=== PATIENT | female | born 1995 | race Caucasian/White ===

== ENCOUNTER 2022-07-19 11:58 | Emergency (ER) | payer OTHER ==
[2022-07-19 12:13] VITALS: BP 126/77
[2022-07-19] MEDS ORDERED: DEXAMETHASONE 10 MG/ML VIAL PO STA (12:44)
[2022-07-19] MEDS ORDERED: PSEUDOEPHEDRINE 30 MG TABLET PO STA (12:44)
[2022-07-19] MEDS ORDERED: CHERRY SYRUP 10 ML UDC PO ONE (12:44)
--- NOTE | 2022-07-19 12:50 | ED Physician Documentation ---
History of Present Illness - Stated complaint Stated Complaint: LEFT EAR PX - Chief complaint Chief Complaint: Heent - History obtained from History obtained from: Patient - History of Present Illness Timing: Today Pain level max: 5 Pain level now: 4 - Additonal information Additional information: L ear pain started 2 hours ago. No fevers. No chills. Patient has had a mild URI for the past several days. Denies any possibility of . Not breast-feeding. Nothing seems to make the pain better or worse. Has not taken anything for the pain. Review of Systems Constitutional: denies: Fever, Chills Nose: reports: Rhinorrhea / runny nose, Congestion Respiratory: reports: Cough (mild, dry) GI: denies: Nausea, Vomiting, Diarrhea Skin: denies: Rash PD PAST MEDICAL HISTORY - Past Medical History Past Medical History: No - Past Surgical History Past Surgical History: No - Present Medications Home Medications: Ambulatory Orders Medication Instructions Recorded Confirmed Cetirizine HCl/Pseudoephedrine 1 each PO BID PRN #30 tab 07/19/22 [Zyrtec-D Tablet] predniSONE [Deltasone] 40 mg PO DAILY #10 tablet 07/19/22 - Allergies Allergies/Adverse Reactions: Allergies Allergy/AdvReac Type Severity Reaction Status Date / Time No Known Drug Allergies Allergy Verified 07/19/22 12:13 - Social History Does the pt smoke?: No Smoking Status: Never smoker Does the pt drink ETOH?: No Does the pt have substance abuse?: No - Immunizations Immunizations are current?: Yes PD ED PE NORMAL - Vitals Vital signs reviewed: Yes - General General: Alert and oriented X 3, No acute distress - HEENT HEENT: Moist mucous membranes, Other (Right TM is normal. Left TM is retracted, but no purulence) - Neck Neck: Supple, no meningeal sign - Cardiac Cardiac: RRR - Respiratory Respiratory: No respiratory distress, Clear bilaterally - Derm Derm: Warm and dry - Neuro Neuro: Alert and oriented X 3 Results - Vitals Vitals: Vital Signs - 24 hr 07/19/22 12:11 Temperature 36.8 C Heart Rate 75 Respiratory 18 Rate Blood Pressure 126/77 O2 Saturation 99 Oxygen O2 Source Room air PD MEDICAL DECISION MAKING - ED course Complexity details: considered differential, d/w patient ED course: 26-year-old female with a retracted left TM, likely causing her pain and decreased hearing. Will place on decongestants and steroids. We will have her follow-up with her doctor for further care. No indication for antibiotics. Patient counseled regarding signs and symptoms for which I believe and urgent re-evaluation would be necessary. Patient with good understanding of and agreement to plan and is comfortable going home at this time This document was made in part using voice recognition software. While efforts are made to proofread this document, sound alike and grammatical errors may occur. Departure - Departure Disposition: 01 Home, Self Care Clinical Impression: Tympanic membrane retraction Qualifiers: Laterality: left Qualified Code(s): H73.892 - Other specified disorders of tympanic membrane, left ear Condition: Good Instructions: ED Obstruction Eustachian Tube Ch Follow-Up: TIANNA BELLE MD [Primary Care Provider] - Prescriptions: predniSONE [Deltasone] 40 mg PO DAILY #10 tablet Cetirizine HCl/Pseudoephedrine [Zyrtec-D Tablet] 1 each PO BID PRN #30 tab PRN Reason: nasal congestion Comments: Your prescriptions were sent to [facility] in [place]. Please follow up with your doctor for further care. Take the medications as prescribed Discharge Date/Time: 07/19/22 13:18
== END 2022-07-19 13:18 | disposition home or self-care (01) ==
LOC: ED 11:58
DX: H73.892 Other specified disorders of tympanic membrane, left ear (principal)
CPT/HCPCS: 99282; A9270

== ENCOUNTER 2022-07-23 12:23 | Outpatient (CLI) | payer OTHER ==
--- NOTE | 2022-07-23 16:19 | MRI Report ---
PROCEDURE: THORACIC SPINE WO INDICATIONS: THORACIC PAIN TECHNIQUE: Noncontrast sagittal T1 spine echo and T2 fast spin echo, sagittal STIR, axial T1 and T2 fast spin ec ho through the thoracic spine. COMPARISON: None. FINDINGS: Image quality: Excellent. Alignment and Curvature: There is normal bony alignment. Bone Marrow: Marrow is of normal overall signal. No acute vertebral body compression fractures. Spinal Cord: Visualized spinal cord is normal in size and signal. Paraspinous Soft Tissues: No paravertebral masses. Miscellaneous: On axial images, central canal and foramina appear widely patent at all scanned level s. IMPRESSION: 1. No compression fracture or spondylolisthesis is seen in thoracic spine. 2. No significant disc bulge, canal stenosis or neural foraminal narrowing. 3. No signal abnormality is seen within thoracic spinal cord. Reviewed by: Delfino Levi MD on 07/23/2022 4:18 PM PDT Approved by: Delfino Levi MD on 07/23/2022 4:18 PM PDT Station ID: [id number]
== END 2022-07-23 12:24 | disposition home or self-care (01) ==
LOC: DI 12:23
PROVIDERS: ATTEND Student in an Organized Health Care Education/Training Program
DX: M54.6 Pain in thoracic spine (principal); R07.9 Chest pain, unspecified

== ENCOUNTER 2023-07-21 12:36 | Outpatient (CLI) | payer OTHER ==
--- NOTE | 2023-07-22 08:55 | MRI Report ---
PROCEDURE: FEMUR/THIGH W/WO - RT INDICATIONS: MASS OR LUMP OF RIGHT LOWER LIMB CONTRAST: clariscan 16.4ml TECHNIQUE: Noncontrast coronal T1 spin echo and STIR, sagittal T1 spin echo with fat saturation and STIR, axial T1 spin echo and T2 fast spin echo with fat saturation. After the administration of contrast, axial/ sagittal/coronal T1 spin echo with fat saturation through the right side. COMPARISON: None. FINDINGS: Image quality: Excellent. Bones: The visualized bone marrow demonstrates normal signal on all sequences. The overlying cortex appears intact. No abnormal intraosseous enhancement. Soft tissues: There is a well-circumscribed oval, slightly lobulated, and fairly homogeneously T2 hyp erintense and T1 hypointense structure within deep soft tissue posterior lateral right upper thigh ju st inferior to the level of right gluteus ale muscle. There is mass effect on the adjacent customs collector ior lateral aspect of the hamstring muscles without definite muscle involvement. This structure measu res up to 6.2 x 3.5 x 8.9 cm in size. After IV contrast infusion, there is heterogeneous enhancement noted within this structure. No other soft tissue mass or area of abnormal enhancement is seen. Rest of the scanned muscles demonstrate normal overall bulk and internal signal. IMPRESSION: 1. 6.2 x 3.5 x 8.9 cm slightly lobulated and well-circumscribed T2 hyperintense and T1 hypointense le mick within deep soft tissue of posterior lateral right upper thigh and show heterogeneous contrast e nhancement. Finding is suggestive of soft tissue mass indeterminant etiology. Excision or biopsy of t his lesion can be done for more definitive diagnosis. 2. Mass effect is noted on the adjacent posterior lateral aspect of right upper hamstring muscles wit hout definite muscle involvement. 3. No marrow signal abnormality is seen in right femur. No abnormal intraosseous. Reviewed by: Delfino Levi MD on 07/22/2023 8:54 AM PDT Approved by: Delfino Levi MD on 07/22/2023 8:54 AM PDT Station ID: [id number]
== END 2023-07-21 12:37 | disposition home or self-care (01) ==
LOC: DI 12:36
DX: R22.41 Localized swelling, mass and lump, right lower limb (principal)
CPT/HCPCS: 73720; A9575

== ENCOUNTER 2024-04-28 07:33 | Outpatient (CLI) | payer OTHER ==
[2024-04-28] MEDS ORDERED: iohexoL-300 100 ML VIAL ONE (07:45)
[2024-04-28] MEDS ORDERED: DIATRIZOATE MEGLU/DIATRIZO SOD 30 ML BOTTLE PO ONE (07:45)
[2024-04-28] MEDS: iohexoL-300 100 ML VIAL IVP ONE (09:00)
[2024-04-28] MEDS: DIATRIZOATE MEGLU/DIATRIZO SOD 30 ML BOTTLE PO ONE (09:00)
--- NOTE | 2024-05-03 14:56 | CT Report ---
PROCEDURE: Chest WO INDICATIONS: MYXOID LIPOSARCOMA TECHNIQUE: A CT scan of the chest was performed. Intravenous contrast media was not administered. Images were re corded and evaluated at appropriate window settings. Reformats: axial MIP of the chest, coronal and s agittal. For radiation dose reduction, the following was used: automated exposure control, adjustment of mA and/or kV according to patient size. COMPARISON: [facility] PET 11/09/2023 FINDINGS: Image quality: Diagnostic. Chest wall and lower neck: No suspicious chest wall lesions. Normal thyroid gland. No axillary or sup raclavicular adenopathy by size. Lungs and pleura: No consolidation or groundglass opacity. No pleural effusions. No pneumothorax. No suspicious pulmonary nodules which require follow up. Central and peripheral airways are normal kelly iber without bronchial wall thickening or bronchiectasis. Mediastinum: Heart size is normal. No pericardial effusion. No large vessel abnormality. No mediastin al adenopathy by size criteria. No anterior or posterior mediastinal mass. Normal esophagus without hiatal hernia Bones: No aggressive osseous abnormality. Upper Abdomen: Dictated separately IMPRESSION: No evidence of acute pathology or metastatic disease in the chest. Reviewed by: Carina Watson MD on 05/03/2024 2:54 PM PDT Approved by: Carina Watson MD on 05/03/2024 2:54 PM PDT Station ID: [id number]
--- NOTE | 2024-05-03 15:11 | CT Report ---
PROCEDURE: Abdomen/Pelvis W INDICATIONS: MYXOID LIPOSARCOMA CONTRAST: 100ml omni 300 TECHNIQUE: After the administration of intravenous contrast, a CT scan of the abdomen and pelvis was performed. Images were recorded and evaluated at appropriate window settings. Reformats: coronal and sagittal. F or radiation dose reduction, the following was used: automated exposure control, adjustment of mA and /or kV according to patient size. COMPARISON: PET/CT 11/09/2023 FINDINGS: Image quality: Diagnostic. Lower chest: Unremarkable. Liver: Mild hepatic steatosis. No suspicious mass. Gallbladder: No radiopaque stones or wall thickening. Biliary tree: No intrahepatic or extrahepatic dilation, accounting for age. Spleen: Normal size. No lesions. Pancreas: Normal. Adrenals: No adrenal nodule. Kidneys and ureters: Symmetric enhancement. No hydronephrosis or nephrolithiasis. No solid mass or cy st requiring follow-up. Stomach, bowel and peritoneum: Stomach and small bowel are normal. Normal colon. No pathologic free f luid. Lymph nodes: No central or retroperitoneal adenopathy. Vessels: Normal caliber abdominal aorta, IVC, and portal vein. Patent portal vein. PELVIS Reproductive organs: Within normal limits. Bladder: Decompressed. No stones. Pelvic lymph nodes: No pelvic adenopathy by size criteria. Bones: No aggressive osseous abnormality. Other: Partially imaged surgical incision along the posterior aspect of the right upper thigh. No blaire picious soft tissue masses. IMPRESSION: No acute pathology or evidence of metastatic disease in the abdomen or pelvis. Reviewed by: Carina Watson MD on 05/03/2024 3:10 PM PDT Approved by: Carina Watson MD on 05/03/2024 3:10 PM PDT Station ID: [id number]
== END 2024-04-28 07:34 | disposition home or self-care (01) ==
LOC: DI 07:33
PROVIDERS: ATTEND Physician Assistant
DX: C49.9 Malignant neoplasm of connective and soft tissue, unspecified (principal)
CPT/HCPCS: 71250; 74177; Q9963; Q9967

== ENCOUNTER 2024-06-14 14:02 | Outpatient (CLI) | payer OTHER ==
--- NOTE | 2024-06-14 17:58 | MRI Report ---
Lumbar Spine W/WO Clinical History: 28 years of age, Female, LOW BACK PAIN, HIST OF METASTATIC CA. Comparison: No priors available Technique: Multiplanar multisequence lumbar spine MRI without and with contrast was performed. Findings: Prior surgery: None. Vertebral bodies: Vertebral body heights are maintained. Alignment: Mild straightening of the lumbar spine. Bone marrow: Unremarkable for age. Intervertebral discs: Multilevel disc bulge and disc desiccation. The conus medullaris is normal in contour, signal intensity, and location. The tip of the conus is at L1-L2. The following axial levels are detailed below: T12-L1: No central canal stenosis. No right neuroforaminal stenosis. No left neuroforaminal stenosis. L1-L2: No central canal stenosis. No right neuroforaminal stenosis. No left neuroforaminal stenosis. L2-L3: No central canal stenosis. No right neuroforaminal stenosis. No left neuroforaminal stenosis. L3-L4: No central canal stenosis. No right neuroforaminal stenosis. No left neuroforaminal stenosis. L4-L5: Mild bilateral facet arthropathy. No central canal stenosis. No right neuroforaminal stenosis. No left neuroforaminal stenosis. L5-S1: Mild bilateral facet arthropathy. No central canal stenosis. No right neuroforaminal stenosis. No left neuroforaminal stenosis. Visualized sacrum and pelvis: Visualized sacrum is unremarkable. IMPRESSION: 1.No MR finding to suggest metastasis in the lumbar spine. 2.Minimal degenerative change of the lumbar spine without significant stenosis. Reviewed by: Paola Bradshaw MD on 06/14/2024 5:56 PM PDT Approved by: Paola Bradshaw MD on 06/14/2024 5:56 PM PDT Station ID: [id number]
== END 2024-06-14 14:03 | disposition home or self-care (01) ==
LOC: DI 14:02
DX: M47.816 Spondylosis without myelopathy or radiculopathy, lumbar region (principal)
CPT/HCPCS: 72158; A9575